=== PATIENT | male | born 1970 | race African-American/Black ===

== ENCOUNTER 2023-05-16 11:56 | Emergency (ER) | payer BC ==
[2023-05-16 12:53] VITALS: BP 131/83
[2023-05-16] MEDS ORDERED: Lidocaine/Epineph/Tetracaine 3 ML Syringe TOP ONE (12:58)
[2023-05-16 14:43] VITALS: PULSE 75
== END 2023-05-16 14:42 | disposition home or self-care (01) ==
LOC: MW.ED 11:56
DX: S61.211A Laceration without foreign body of left index finger without damage to nail, initial encounter (principal); Z86.16 Personal history of COVID-19; W23.1XXA Caught, crushed, jammed, or pinched between stationary objects, initial encounter
CPT/HCPCS: 12001; 99282; A9270